=== PATIENT | female | born 1950 | race African-American/Black ===

== ENCOUNTER → 2016-10-13 | Outpatient (CLI) | payer MEDICARE | END | disposition home or self-care (01) | LOC: MAMMO 13:27 | PROVIDERS: ATTEND Internal Medicine Geriatric Medicine | DX: Z12.31 Encounter for screening mammogram for malignant neoplasm of breast (principal) | CPT/HCPCS: G0202 ==

== ENCOUNTER → 2017-11-01 | Outpatient (CLI) | payer MEDICARE, OTHER | END | disposition home or self-care (01) | LOC: MAMMO 13:04 | PROVIDERS: ATTEND Internal Medicine Geriatric Medicine | DX: Z12.31 Encounter for screening mammogram for malignant neoplasm of breast (principal); R92.1 Mammographic calcification found on diagnostic imaging of breast | CPT/HCPCS: 77067 ==

== ENCOUNTER 2018-06-18 17:20 | Emergency (ER) | payer MEDICARE, OTHER ==
[~2018-06-18] VITALS: Ht 170.2 cm; Wt 110.0 kg
[2018-06-18] MEDS ORDERED: ACETAMINOPHEN 500MG TABLET PO ONE (18:45)
[2018-06-18 20:55] VITALS: BP 162/85
== END 2018-06-18 21:00 | disposition home or self-care (01) ==
LOC: ER 17:20
DX: M54.9 Dorsalgia, unspecified (principal); M25.562 Pain in left knee; M25.561 Pain in right knee; R07.81 Pleurodynia; I10 Essential (primary) hypertension; E05.90 Thyrotoxicosis, unspecified without thyrotoxic crisis or storm; Z88.0 Allergy status to penicillin; Z88.6 Allergy status to analgesic agent; Z88.8 Allergy status to other drugs, medicaments and biological substances; Z88.1 Allergy status to other antibiotic agents; Z88.5 Allergy status to narcotic agent; W01.0XXA Fall on same level from slipping, tripping and stumbling without subsequent striking against object, initial encounter; Y93.89 Activity, other specified; Y92.89 Other specified places as the place of occurrence of the external cause; Y99.8 Other external cause status
CPT/HCPCS: 71101; 73560; 99283